=== PATIENT | female | born 1980 | race Caucasian/White ===

== ENCOUNTER → 2018-04-18 | Day surgery (SDC) | payer OTHER ==
[~2018-04-18] MED LIST: CEFAZOLIN SOD 1 GM/D5W 50ML 50 ML IV ONE; CITALOPRAM HBR20 MG PO; DEXAMETHASONE SOD PHOS INJ 4 MG/ML VIAL ONE; DIPHENHYDRAMINE HCL INJ 50 MG/ML VIAL ONE; EPINEPHRINE HCL INJ 1 MG/ML AMP ONE; ESMOLOL HCL 100MG/10ML 10 MG/ML VIAL ONE; FENTANYL CITRATE/PF 100MCG/2 ML INJ ONE; GLYCOPYRROLATE INJ 1MG/ 5 ML SYR ONE; KETOROLAC TROMETHAMINE 30 MG/ML VIAL ONE; LIDOCAINE 2% /EPINEPHRINE 20 ML SDV INJ ONE; LIDOCAINE HCL 2% LOCAL INJ 5 ML SDV VIAL INJ ONE; MEPERIDINE HCL INJ 50 MG/ML INJ ONE; MIDAZOLAM HCL 2 MG/2 ML VIAL ONE; MORPHINE SULFATE INJ 4 MG/ML INJ ONE; NEOSTIGMINE 5 MG/5ML SYR ONE; ONDANSETRON HCL INJ 2 MG/ML VIAL ONE; PROPOFOL IV EMULSION 10 MG/ML 20 ML VIAL ONE; ROCURONIUM BROMIDE 10 MG/ML 5ML VIAL ONE; ROPIVACAINE 0.5% 5 MG/ML 30 ML SDV INJ ONE; ROPIVACAINE 0.5% 5 MG/ML 30 ML SDV ONE; SEVOFLURANE INHAL SOLN 250 ML PEN BTL ONE
--- OUTSIDE RECORDS SUMMARY | 2018-04-18 08:58 | XMS REPORT | Clinical Summary ---
Author Author [facility] Organization [facility] Address Unknown Phone Unavailable Care Team Providers Care [facility] Registered Nurse Name Role Phone Jocelyne Castillo MD PCP Allergies Comments Active Allergy Reactions Severity Noted Date Penicillins 01/20/2016 Medications End Date Status Medication Sig Dispensed Refills Start Date Active citalopram (CeleXA) 20 MG TAKE 1 30 tablet 0 tablet TABLET(20 MG) 7 BY MOUTH DAILY Active citalopram (CeleXA) 20 MG TAKE 1 90 tablet 0 tablet TABLET(20 MG) 8 BY MOUTH DAILY 07/22/2017 levothyroxine (SYNTHROID) Take 1 tablet 30 tablet 1 25 mcg tablet (25 mcg 7 total) by mouth every morning. 09/01/2017 Discontinued citalopram (CeleXA) 20 MG Take 1 tablet 90 tablet 1 tablet (20 mg total) 7 by mouth daily. 09/12/2017 Discontinued dextroamphetamine-ampheta Take 1 tablet 30 tablet 0 mine (ADDERALL) 20 mg (20 mg total) 8 tabletIndications: by mouth Inattention daily for 30 days. Max Daily Amount: 20 mg 12/11/2017 dextroamphetamine-ampheta Take 1 tablet 90 tablet 0 mine (ADDERALL) 20 mg (20 mg total) 8 tabletIndications: by mouth Inattention daily for 90 days. Max Daily Amount: 20 mg Active Problems Not on file Encounters Care Team Description Date Type Specialty Jocelyne Castillo MD Inattention 09/12/2017 Office Visit Family Medicine Jocelyne Castillo MD 09/01/2017 Refill Family Medicine Jocelyne Castillo MD Inattention (Primary Dx); Anxiety; Vaginal spotting; Viral warts, unspecified type 08/12/2017 Office Visit Family Medicine after 04/17/2017 Family History Medical History Relation Name Comments Asthma Father Heart disease Father Arthritis Mother Relation Name Status Comments Father Mother Social History Date Tobacco Use Types Packs/Day Years Used Never Smoker Smokeless Tobacco: Never Used Alcohol Use Drinks/Week oz/Week Comments Yes 1 Glasses of wine Sex Assigned at Date Recorded Not on file Industry Job Start Date Occupation Not on file Not on file Not on file Travel End Travel History Travel Start No recent travel history available. Last Filed Vital Signs Time Taken Vital Sign Reading 09/12/2017 9:04 AM CDT Blood Pressure 120/82 09/12/2017 9:04 AM CDT Pulse 95 09/12/2017 9:04 AM CDT Temperature 36.7 C (98.1 F) - Respiratory Rate - 09/12/2017 9:04 AM CDT Oxygen Saturation 96% - Inhaled Oxygen - Concentration 09/12/2017 9:04 AM CDT Weight 64 kg (141 lb) 09/12/2017 9:04 AM CDT Height 167.6 cm (5' 6") 09/12/2017 9:04 AM CDT Body Mass Index 22.76 Plan of Treatment Health Maintenance Due Date Last Done Comments CERVICAL CANCER SCREENING 2002 INFLUENZA VACCINE 12/07/2017 HEPATITIS B VACCINES Aged Out No longer eligible based on patient's age to complete this topic IPV VACCINES Aged Out No longer eligible based on patient's age to complete this topic MENINGOCOCCAL VACCINE Aged Out No longer eligible based on patient's age to complete this topic Results Not on fileafter 04/17/2017 Insurance Payer Benefit Subscriber ID Type Phone Address Plan / Group [employer] CIGNA OPEN xxxxxxxxxxx HMO ACCESS/NET WORK Advance Directives Patient has advance care planning documents on file. For more information, ramiro pacheco contact: Rex Jo [address] [place] [address]
[2018-04-18 14:00] VITALS: BP 135/85
--- NOTE | 2018-04-18 14:08 | Operative Report ---
DATE OF PROCEDURE: April 18, 2018 ENVIRONMENTAL EMERGENCIES PLANNER: Osito Miller PA-C The patient was brought to the operating room for induction of anesthesia. Throughout this case, my PA's assistance was necessary for retraction of soft tissue and positioning of the extremity. This allows for efficient and technically successful execution of the operation and is considered medically necessary. PREOPERATIVE DIAGNOSIS: Left shoulder anterior subluxation. POSTOPERATIVE DIAGNOSIS: Left shoulder partial thickness rotator cuff tear. PROCEDURES: Left shoulder arthroscopy, subacromial decompression and bursectomy, debridement of partial thickness rotator cuff tear. INDICATIONS: The patient is a 37-year-old lady who complains of severe left shoulder pain that has failed to improve with physical therapy, time, and medical management. An MRI with inconclusive fir clearly defining the source of her discomfort. She plays volleyball and my suspicion was that she had an anterior labral tear. We discussed the findings and options. The patient would like to proceed with more definitive intervention. The risks and benefits of diagnostic arthroscopy with repairs as indicated was discussed. She states she understands and wishes to proceed. DESCRIPTION OF PROCEDURE: The patient was brought to the operating room and placed under general anesthetic. She was positioned in the beach chair position. She received prophylactic antibiotics in the holding area. Her left shoulder was examined under anesthesia. I did not appreciate any gross instability. The shoulder seemed to compare instability that was equal to the right shoulder. Her left upper extremity was prepped and draped in a sterile manner. A preoperative time out was performed. A posterior arthroscopy portal was established and the shoulder was insufflated with sterile saline. The glenohumeral joint was systematically inspected. An anterior working portal was established in the rotator interval. The shoulder joint appeared pristine. The glenohumeral surfaces were well preserved. There was no evidence of any synovitis. The anterior, posterior, and superior labrums were all carefully probed. There was no evidence of any labral tears. The biceps tendon was completely normal. The articular surface rotator cuff insertion was unremarkable. The scope was removed and placed into the subacromial space. There were some moderate amount of subacromial bursitis. She had a down slopping acromion. A lateral working portal was established. A subacromial bone decompression was performed. The subacromial space was opened up. The bursa was debrided. The bursal surface of the rotator cuff was carefully inspected and probed. There was a partial thickness tear of the supraspinatus insertion. This was debrided back to normal tissue using mechanical shaver. The partial tear was probed and noted to be less than 15% or 20% of the thickness of the tendon. The arthroscopic instruments were removed. The portal incisions were closed with nylon stitches. She was placed into an UltraSling and extubated. She was transported to the recovery room in stable condition. There was no blood loss and all needle and sponge counts were correct. Job#: [id number] SUB
== END | disposition home or self-care (01) ==
LOC: OR 08:55
PROVIDERS: ATTEND Specialist
DX: S46.012A Strain of muscle(s) and tendon(s) of the rotator cuff of left shoulder, initial encounter (principal)
CPT/HCPCS: 29826; 29827; 81025; J0171; J0690; J1100; J1200; J1885; J2001 ×2; J2175; J2250; J2270; J2405; J2704; J2795; J3490